=== PATIENT | female | born 1995 | race Caucasian/White ===

== ENCOUNTER → 2017-02-15 | Outpatient (CLI) | payer BC ==
[~2017-02-15] MED LIST: OPTIRAY 320 IV PRN
--- NOTE | 2017-02-15 13:45 | DIAGNOSTIC IMAGING REPORT ---
CT NECK WITH INTRAVENOUS CONTRAST HISTORY: Follow up cervical lymphadenopathy. Abnormal ultrasound. TECHNIQUE: Multiaxial CT images of the neck were performed following use of intravenous contrast. COMPARISON STUDY: None. FINDINGS: The visualized brain parenchyma and orbits are unremarkable. Prevertebral soft tissues in the upper lungs are normal in thickness. The thyroid enhances normally. Paranasal sinuses and mastoid air cells are clear. No suspicious lytic or blastic osseous lesions. Possible soft tissue prominence of the prevascular space within the mediastinum which may represent enlarged lymph nodes. This is only partially imaged on this study. This measures 1 cm short axis diameter. No submandibular lymphadenopathy. Prominent level 2 and level 5 lymph nodes which may correspond to the abnormality on the prior CT examination. Dominant right jugulodigastric (level 2) lymph node measures 11 mm in short axis diameter. Prominent posterior cervical chain lymph nodes (level 5) measure up to 8 mm in short axis diameter. These could be within the range of normal limits given the patient's age. Slightly prominent adenoid and palatine tonsils may also be age-related. The major cervical vessels are widely patent. The lung apices are clear. The parotid and submandibular glands are symmetric. IMPRESSION: 1. Slightly prominent cervical lymph nodes as described above. However, these could be within the range normal limits given the patient's age. Continued clinical follow is recommended to ensure stability. 2. Partially visualized soft tissue within the prevascular space of the mediastinum. These could represent enlarged lymph nodes but are incompletely characterized on this study. Dedicated chest CT is recommended for confirmation. Electronically signed by: Robson Gunn M.D. 02/15/2017 1:44 PM Dictated Date/Time: 02/15/2017 1:06 PM
== END | disposition home or self-care (01) ==
LOC: C.CTS 12:04
DX: R59.0 Localized enlarged lymph nodes (principal); R93.8 Abnormal findings on diagnostic imaging of other specified body structures

== ENCOUNTER → 2017-02-20 | Outpatient (CLI) | payer BC ==
--- NOTE | 2017-02-20 14:18 | DIAGNOSTIC IMAGING REPORT ---
CHEST CT WITH CONTRAST CT DOSE: 225.11 mGy.cm HISTORY: R59.0 Cervical lymphadenopathy PATIENT WITH CT SCAN OF THE NECK W TECHNIQUE: Multiaxial CT images of the chest were performed following the intravenous administration of contrast. A dose lowering technique was utilized adhering to the principles of ALARA. COMPARISON: Neck CT 02/15/2017. FINDINGS: The central airways are patent. No pleural effusions. No pneumothorax. A 2 mm nodule within the right lung apex on image 61 of 326. Otherwise, the lungs are clear. No mediastinal or hilar lymphadenopathy. Small amount of soft tissue within the anterior mediastinum is consistent with residual fibrous given the patient's age. No soft tissue masses identified. The heart is normal in size. The visualized liver, spleen, and a general glands are unremarkable. No fractures within the visualized osseous structures. Normal caliber thoracic aorta. The main pulmonary arteries are patent. IMPRESSION: 1. Normal mediastinum for age. Specifically, there is no mediastinal mass or lymphadenopathy. 2. A 2 mm indeterminate pulmonary nodule within the right upper lobe. This is of doubtful clinical significance given the patient's age and size of the nodule. Electronically signed by: Robson Gunn M.D. 02/20/2017 2:17 PM Dictated Date/Time: 02/20/2017 2:12 PM
== END | disposition home or self-care (01) ==
LOC: C.CTS 13:07
DX: R59.0 Localized enlarged lymph nodes (principal); R91.1 Solitary pulmonary nodule